=== PATIENT | male | born 2000 | race American Indian/Alaskan Native ===

== ENCOUNTER 2022-04-23 05:58 | Emergency (ER) | payer BC ==
[2022-04-23 06:42] VITALS: BP 140/91
--- NOTE | 2022-04-23 07:08 | XRay Report ---
CHEST 1 VIEW INDICATION / CLINICAL INFORMATION: Dyspnea. COMPARISON: None available. FINDINGS: SUPPORT DEVICES: None. HEART / MEDIASTINUM: Heart size is within normal limits. Mediastinal contour demonstrates no signific ant abnormality. LUNGS / PLEURA: Lungs are clear for degree of inspiration and technique utilized. BONES: No significant osseous abnormality. ADDITIONAL FINDINGS: No significant additional findings. IMPRESSION: 1. No active cardiopulmonary disease. Signer Name: Juan Smart II, MD Signed: 04/23/2022 7:04 AM Workstation Name: [id number]
[2022-04-23 07:16] LABS: Benzodiazepines Screen,Urine Negative; Cocaine Screen,Urine Negative; Methadone Screen,Urine Negative; Opiate Screen,Urine Negative
[2022-04-23 07:21] LABS: Mucus,Urine 3+ /HPF
[2022-04-23 07:31] LABS: Amphetamine Screen,Urine Positive; Cannabinoid Screen,Urine Positive
[2022-04-23 07:34] LABS: Basophils # (Auto) 0.1 K/mm3 (0.0-0.1); Basophils % (Auto) 1.2 % (0.0-1.8); Eosinophils % (Auto) 0.2 % (0.0-4.3); Hemoglobin 15.8 gm/dl (11.8-15.2); Lymphocytes % (Auto) 29.8 % (13.4-35.0); Mean Corpuscular HGB Conc 33 % (32-34); Mean Corpuscular Volume 83 fl (84-94); Monocytes # (Auto) 0.9 K/mm3 (0.0-0.8); Monocytes % (Auto) 12.5 % (0.0-7.3); Platelet Count 473 K/mm3 (140-440); Red Cell Distribution Width 13.2 % (13.2-15.2)
[2022-04-23 07:50] LABS: BUN/Creatinine Ratio 14; Blood Urea Nitrogen 17 mg/dL (9-20); Calcium 10.9 mg/dL (8.4-10.2); Hemolysis Index 7
[2022-04-23 07:57] LABS: Color,Urine Yellow (Yellow)
--- NOTE | 2022-04-23 11:24 | Emergency Department Report ---
ED Shortness of Breath HPI - General Chief Complaint: Dyspnea/Respdistress Stated Complaint: MILAN/BLURRED VISION Time Seen by Provider: 04/23/22 11:08 Source: patient Mode of arrival: Ambulatory Limitations: No Limitations - History of Present Illness Initial Comments: 21-year-old black male with no past medical history presents to the emergency department for evaluation of shortness of breath blurred vision and syncope. He states that 2 to 3 days ago he took some ecstasy pills and after then, he passed out and since then he has been having intermittent shortness of breath and blurry vision. He denies shortness of breath and blurred vision at this time but states that he just wanted to come to be evaluated to make sure that he is okay. He states that he has already been seen at 2 other hospitals in the last 2 days and has been discharged home. He states that when he had syncope he also has some chest pain and pain to his right shoulder but denies any pain at this time. He denies shortness of breath, chest pain, nausea, vomiting, dizziness and diaphoresis. MD Complaint: shortness of breath, chest pain -: Sudden, days(s) (2-3) Known History Of: other (Drug abuse) Associated Symptoms: chest pain Treatments Prior to Arrival: none - Related Data Home Oxygen Therapy: No Allergies Allergy/AdvReac Type Severity Reaction Status Date / Time No Known Allergies Allergy Unverified 04/23/22 06:07 ED Review of Systems ROS: Stated complaint: MILAN/BLURRED VISION Other details as noted in HPI Comment: All other systems reviewed and negative Constitutional: denies: chills, fever Eyes: vision change ENT: denies: congestion Respiratory: shortness of breath. denies: SOB with exertion, SOB at rest, stridor, wheezing Cardiovascular: chest pain. denies: palpitations, dyspnea on exertion, orthopnea, edema, syncope, paroxysmal nocturnal dyspnea Gastrointestinal: denies: abdominal pain, nausea, vomiting Genitourinary: denies: urgency, dysuria Musculoskeletal: denies: back pain Neurological: denies: headache, weakness ED Past Medical Hx - Social History Smoking Status: Current Every Day Smoker Substance Use Type: None ED Physical Exam - General Limitations: No Limitations General appearance: alert, in no apparent distress - Head Head exam: Present: atraumatic, normocephalic - Eye Eye exam: Present: normal appearance. Absent: conjunctival injection, periorbital swelling, periorbital tenderness - ENT ENT exam: Present: normal exam, normal orophraynx, TM's normal bilaterally - Neck Neck exam: Present: normal inspection, full ROM. Absent: tenderness, lymphadenopathy - Respiratory Respiratory exam: Present: normal lung sounds bilaterally. Absent: respiratory distress, wheezes, rales, rhonchi, stridor, chest wall tenderness - Cardiovascular Cardiovascular Exam: Present: regular rate, normal heart sounds - GI/Abdominal GI/Abdominal exam: Present: soft, normal bowel sounds. Absent: distended, tenderness, guarding, rebound, rigid - Extremities Exam Extremities exam: Present: normal inspection, full ROM, normal capillary refill. Absent: tenderness, pedal edema, joint swelling, calf tenderness - Back Exam Back exam: Present: normal inspection. Absent: CVA tenderness (R), CVA tenderness (L), vertebral tenderness - Neurological Exam Neurological exam: Present: alert, oriented X3, CN II-XII intact, normal gait - Psychiatric Psychiatric exam: Present: normal affect, normal mood - Skin Skin exam: Present: warm, dry, intact, normal color ED Course Vital Signs 04/23/22 04/23/22 06:31 11:55 Temperature 98.8 F Pulse Rate 94 H Respiratory 24 Rate Blood Pressure 140/91 O2 Sat by Pulse 95 98 Oximetry ED Medical Decision Making - Lab Data Result diagrams: 04/23/22 07:05 04/23/22 07:05 - Radiology Data Radiology results: report reviewed, image reviewed Chest x-ray: FINDINGS: SUPPORT DEVICES: None. HEART / MEDIASTINUM: Heart size is within normal limits. Mediastinal contour demonstrates no significant abnormality. LUNGS / PLEURA: Lungs are clear for degree of inspiration and technique utilized. BONES: No significant osseous abnormality. ADDITIONAL FINDINGS: No significant additional findings. IMPRESSION: 1. No active cardiopulmonary disease. - Medical Decision Making 21-year-old black male with no past medical history presents to the emergency department for evaluation of shortness of breath blurred vision and syncope. He states that 2 to 3 days ago he took some ecstasy pills and after then, he passed out and since then he has been having intermittent shortness of breath and blurry vision. He denies shortness of breath and blurred vision at this time but states that he just wanted to come to be evaluated to make sure that he is okay. He states that he has already been seen at 2 other hospitals in the last 2 days and has been discharged home. He states that when he had syncope he also has some chest pain and pain to his right shoulder but denies any pain at this time. He denies shortness of breath, chest pain, nausea, vomiting, dizziness and diaphoresis. Physical exam and work-up unremarkable. Patient advised to discontinue use of ecstasy and other illicit drugs. He is advised to follow-up with his primary care provider for further evaluation and management and return to the emergency department as needed. He verbalizes understanding of and agreement with plan of care. Critical care attestation.: If time is entered above; I have spent that time in minutes in the direct care of this critically ill patient, excluding procedure time. ED Disposition Clinical Impression: Shortness of breath, Methamphetamine use Disposition: 01 HOME / SELF CARE / HOMELESS Is pt being admited?: No Does the pt Need Aspirin: No Condition: Stable Instructions: Amphetamines Use Disorder, Shortness of Breath, Adult, [id number] Additional Instructions: Follow-up with your primary care provider if no improvement or worsening symptoms. Return to the emergency department as needed. Referrals: DREW FRANCO MD [Staff Physician] - 3-5 Days [facility] [Outside] - 3-5 Days Forms: Work/School Release Form(ED) Time of Disposition: 11:24
== END 2022-04-23 12:00 | disposition home or self-care (01) ==
LOC: ED 05:58
DX: R06.02 Shortness of breath (principal); H53.8 Other visual disturbances; R55 Syncope and collapse; F15.10 Other stimulant abuse, uncomplicated; F17.200 Nicotine dependence, unspecified, uncomplicated; Z79.899 Other long term (current) drug therapy
CPT/HCPCS: 36415; 71045; 80048; 80307; 81001; 85025; 99283